=== PATIENT | male | born 1960 ===

== ENCOUNTER 2017-02-28 14:17 | Emergency (ER) | payer OTHER ==
[2017-02-28 14:26] VITALS: BP 134/67; PULSE 74; RESP 20; TEMP 97.6; O2SAT 0
[2017-02-28] MEDS ORDERED: Sodium Chloride 0.9% 1,000 ML IV STA (14:30)
[2017-02-28 15:13] LABS: BASO # 0.1 K/uL (0.0-0.2); BASO % 1.5 % (0.0-2.0); EOS # 0.3 K/uL (0.0-0.7); EOS % 4.3 % (0.0-4.0); HEMATOCRIT 45.2 % (35.0-51.0); LYMPH # 2.2 K/uL (1.0-4.3); LYMPH % 33.9 % (20.0-40.0); MEAN CORPUSCULAR HEMOGLOBIN 30.6 pg (27.0-31.0); MEAN PLATELET VOLUME 8.6 fl (7.2-11.7); MONO # 0.4 K/uL (0.0-0.8); MONO % 6.4 % (0.0-10.0); NEUT # 3.5 K/uL (1.8-7.0); NEUT % 53.9 % (50.0-75.0); RED CELL DISTRIBUTION WIDTH 13.6 % (11.5-14.5); WHITE BLOOD COUNT 6.5 K/uL (4.8-10.8)
[2017-02-28 15:16] LABS: RBC URINE 16 /hpf (0-3); URINE BILIRUBIN NEGATIVE (NEGATIVE); URINE BLOOD MODERATE (NEGATIVE); URINE COLOR STRAW (YELLOW); URINE GLUCOSE (UA) NEG (Normal); URINE KETONE NEGATIVE (NEGATIVE); URINE LEUKOCYTE ESTERASE NEG Leu/uL (Negative); URINE PROTEIN NEGATIVE (NEGATIVE); URINE UROBILINOGEN 0.2-1.0 mg/dL (0.2-1.0); WBC URINE < 1 /hpf (0-5)
[2017-02-28 15:26] LABS: ALB/GLOB RATIO 1.3 (1.0-2.1); ALKALINE PHOSPHATASE 100 U/L (38-126); ALT/SGPT 28 U/L (21-72); AST/SGOT 36 U/L (17-59); BILIRUBIN,TOTAL 0.4 mg/dl (0.2-1.3); BLOOD UREA NITROGEN 12 mg/dl (9-20); CALCIUM 9.6 mg/dL (8.4-10.2); CARBON DIOXIDE 27 mmol/L (22-30); CHLORIDE 104 mmol/L (98-107); GFR AFRICAN-AMERICAN > 60; GLUCOSE,RANDOM 116 mg/dL (75-110); POTASSIUM 4.4 MMOL/L (3.6-5.0); SODIUM 146 mmol/l (132-148)
[2017-02-28 15:56] LABS: PROSTATE SPECIFIC ANTIGEN 1.11 ng/ML (0.00-4.0)
--- NOTE | 2017-02-28 16:27 | ED PDOC ---
HPI: Back Time Seen by Provider: 02/28/17 14:29 Chief Complaint (Nursing): Back Pain Chief Complaint (Provider): Low Back Pain History Per: Patient History/Exam Limitations: no limitations Onset/Duration Of Symptoms: Days (x1 week) Current Symptoms Are (Timing): Still Present Quality Of Discomfort: Other (w/radiation to left leg) Severity: Moderate Associated Symptoms: Other (hematuria (today)) Additional Complaint(s): Jas Wilde is a 56 year old male, with a past medical history of prostate problems, who presents to the ED on 02/28/17 for the evaluation of moderate lower back pain that he has experienced x1 week. Pain, further described as radiating into his left leg, has also been accompanied by some grossly bloody urine (today) though he denies fever, flank pain, scrotal pain or penile pain. Has taken no medications for symptom relief prior to arrival. Of note, patient's most recent followup with his PMD/Urologist was as of 4 months ago, at which time he was told his prostate was OK. PMD: unable to remember name Past Medical History Reviewed: Historical Data, Nursing Documentation, Vital Signs Vital Signs: Last Vital Signs Temp 97.6 F 02/28/17 14:22 Pulse 74 02/28/17 14:22 Resp 20 02/28/17 14:22 BP 134/67 02/28/17 14:22 Pulse Ox 0 L 02/28/17 14:22 - Medical History PMH: Benign Prostatic Hyperplasia ("prostate problems") - Surgical History Surgical History: No Surg Hx - Family History Family History: States: Unknown Family Hx - Home Medications Home Medications: Ambulatory Orders Medication Instructions Recorded Ciprofloxacin HCl [Cipro] 500 mg PO BID #20 tab 02/28/17 - Allergies Allergies/Adverse Reactions: Allergies Allergy/AdvReac Type Severity Reaction Status Date / Time No Known Allergies Allergy Verified 02/28/17 14:22 Review of Systems Constitutional: Negative for: Fever Genitourinary Male: Positive for: Hematuria (gross, today). Negative for: Penile Pain, Other (no scrotal pain) Musculoskeletal: Positive for: Back Pain (low back; no flank pain) Physical Exam - Reviewed Nursing Documentation Reviewed: Yes Vital Signs Reviewed: Yes - Physical Exam Appears: Positive for: Non-toxic, No Acute Distress Head Exam: Positive for: ATRAUMATIC, NORMOCEPHALIC Skin: Positive for: Normal Color, Warm, Dry Eye Exam: Positive for: Normal appearance, PERRL Neck: Positive for: Normal, Painless ROM, Supple Cardiovascular/Chest: Positive for: Regular Rate, Rhythm. Negative for: Murmur Respiratory: Positive for: Normal Breath Sounds. Negative for: Respiratory Distress Gastrointestinal/Abdominal: Positive for: Normal Exam, Soft. Negative for: Tenderness Back: Positive for: Vertebral Tenderness (low back, mostly central/vertebral). Negative for: L CVA Tenderness, R CVA Tenderness Extremity: Positive for: Normal ROM (FROM x4 extremities). Negative for: Deformity Neurologic/Psych: Positive for: Alert, Oriented. Negative for: Motor/Sensory Deficits - Laboratory Results Result Diagrams: 02/28/17 15:00 02/28/17 15:00 - ECG O2 Sat by Pulse Oximetry: 0 - Other Rad XR Lumbar Spine X-Ray: Interpreted by Me, Viewed By Me X-Ray Interpretation: no lytic lesions, maintained lumbar disc space Medical Decision Making Medical Decision Makin:29 Initial Impression: low back pain Initial Plan: * XR Lumbar Spine * Labs * PSA * Udip * Urinalysis * Urine Culture * IV NS 1000ml at 1000mls/hr * Toradol 30mg IV * Reevaluation 16:25 XR L-spine as reviewed by this provider shows no lytic lesions and a maintained lumbar disc space. Labs reviewed, unremarkable save for moderate blood on urinalysis. Patient will likely require urology followup. Upon provider reevaluation patient reports improvement in pain s/p administration of ED analgesics. Scribe Attestation: Documented by Sabrina Mullen, acting as a scribe for Cr Stapleton III, DO. Provider Scribe Attestation: All medical record entries made by the Scribe were at my direction and personally dictated by me. I have reviewed the chart and agree that the record accurately reflects my personal performance of the history, physical exam, medical decision making, and the department course for this patient. I have also personally directed, reviewed, and agree with the discharge instructions and disposition. Disposition - Clinical Impression Clinical Impression: Hematuria - Disposition Referrals: [facility] [Outside] Neil Rangel MD [Staff Provider] - Disposition: Transfer of Care Disposition Time: 19:00 Condition: GOOD Additional Instructions: follow up with urologist as instructed for blood in your urine. return to the ED with any worsening or concerning symptoms. Prescriptions: Ciprofloxacin HCl [Cipro] 500 mg PO BID #20 tab Instructions: Ciprofloxacin (By mouth), Acute Hematuria (ED) Patient Signed Over To: Gianfranco Chavez
--- NOTE | 2017-02-28 19:43 | ED PDOC ---
- Laboratory Results Result Diagrams: 02/28/17 15:00 02/28/17 15:00 - ECG O2 Sat by Pulse Oximetry: 0 - Other Rad XR Lumbar Spine X-Ray: Interpreted by Me, Viewed By Me X-Ray Interpretation: no acute disease Medical Decision Making Medical Decision Makin:00 Patient endorsed over to me by Cr Stapleton III, DO, pending XR, reevaluation and final disposition. 21:32 Urine studies negative. Labs reviewed with no clinically significant abnormalities. XR L-Spine shows no acute disease, as read by this provider. Upon provider reevaluation patient is feeling better, is medically stable, and requires no further treatment in the ED at this time. Patient will be discharged home with Rx for Cipro and instructions to take Tylenol as needed for relief of pain. Counseling was provided and all questions were answered regarding diagnosis and need for follow up with the referred urologist (Dr. Thomas). There is agreement to discharge plan. Return if symptoms persist or worsen. Clinical Impression: hematuria Scribe Attestation: Documented by Sabrina Mullen, acting as a scribe for Gianfranco Chavez MD. Provider Scribe Attestation: All medical record entries made by the Scribe were at my direction and personally dictated by me. I have reviewed the chart and agree that the record accurately reflects my personal performance of the history, physical exam, medical decision making, and the department course for this patient. I have also personally directed, reviewed, and agree with the discharge instructions and disposition. Disposition Counseled Patient/Family Regarding: Studies Performed, Diagnosis, Need For Followup - Clinical Impression Clinical Impression: Hematuria - POA Present On Arrival: None - Disposition Referrals: [facility] [Outside] Neil Rangel MD [Staff Provider] - Disposition: Routine/Home Disposition Time: 21:00 Condition: GOOD Additional Instructions: follow up with urologist as instructed for blood in your urine. return to the ED with any worsening or concerning symptoms. Prescriptions: Ciprofloxacin HCl [Cipro] 500 mg PO BID #20 tab Instructions: Ciprofloxacin (By mouth), Acute Hematuria (ED)
--- NOTE | 2017-03-01 11:58 | RAD ---
PROCEDURE: Radiographs of the Lumbar Spine. HISTORY: Central low back pain COMPARISON: No prior. FINDINGS: BONES: There is normal alignment of the lumbar vertebral bodies. Lumbar lordosis is maintained. Vertebral bodies are normal in height. There is no acute fracture, spondylolysis or spondylolisthesis. DISC SPACES: There is mild degenerative disc disease in the lower lumbar spine with anterior spurring, mild reduced disc heights and multilevel facet arthropathy, worse at L5-S1. There is partial sacralization of L5 on the left and degenerative changes at the lumbosacral articulation. OTHER FINDINGS: None. IMPRESSION: No acute fracture or spondylolysis. Mild multilevel degenerative disc disease in the lower lumbar spine, worse at L5-S1.
== END 2017-02-28 21:52 | disposition home or self-care (01) ==
LOC: H.ER 14:17
DX: R31.9 Hematuria, unspecified (principal)

== ENCOUNTER 2017-03-08 17:48 | Observation (INO) | payer OTHER ==
[2017-03-08 17:58] VITALS: BP 127/67; PULSE 75; RESP 18; TEMP 97.6; O2SAT 100
[2017-03-08] MEDS ORDERED: Iohexol 240 (50 ml) PO ONE (18:16)
[2017-03-08] MEDS ORDERED: Iohexol 240 (50 ml) ONE (18:17)
[2017-03-08] MEDS ORDERED: Sodium Chloride 0.9% 1,000 ML IV STA (18:18)
--- NOTE | 2017-03-08 18:28 | ED PDOC ---
HPI: Abdomen Time Seen by Provider: 03/08/17 17:59 Chief Complaint (Nursing): GI Problem Chief Complaint (Provider): Abdominal Pain History Per: Patient History/Exam Limitations: no limitations Onset/Duration Of Symptoms: Hrs (x3) Outside of [place] travel?: No Current Symptoms Are (Timing): Still Present Severity: Moderate Location Of Pain/Discomfort: RUQ, Epigastric Quality Of Discomfort: "Pain" (feels as if abdomen is "inflamed") Associated Symptoms: Vomiting (x2, non-bilious/non-bloody). denies: Fever, Diarrhea, Constipation Last Bowel Movement: Other (normal but occasionally productive of black stools) Additional Complaint(s): Jas Wilde is a 56 year old male, with a past medical history inclusive of hypercholesterolemia, who presents to the ED on 03/08/17 for the evaluation of moderate epigastric/RUQ abdominal pain that he has experienced x3 hours. Pain, further described as his abdomen being "inflamed", has also been accompanied by 2 episodes of non-bilious/non-bloody vomiting. Recent bowel movements have reportedly been normal, though occasionally productive of black stools. Denies fever. Of note, patient reports having experienced a similar painful episode 1 week ago but that symptoms had spontaneously resolved. He also admits to being a former habitual alcohol abuser but states that he no longer drinks. PMD: Carmela Barber Past Medical History Reviewed: Historical Data, Nursing Documentation, Vital Signs Vital Signs: Last Vital Signs Temp 97.6 F 03/08/17 17:50 Pulse 75 03/08/17 17:50 Resp 18 03/08/17 17:50 BP 127/67 03/08/17 17:50 Pulse Ox 100 03/08/17 22:23 - Medical History PMH: Benign Prostatic Hyperplasia ("prostate problems"), Hypercholesterolemia - Family History Family History: States: Unknown Family Hx - Social History Alcohol: Other (former abuser, no longer drinks) - Home Medications Home Medications: Ambulatory Orders Medication Instructions Recorded Ciprofloxacin HCl [Cipro] 500 mg PO BID #20 tab 02/28/17 Dicyclomine [Dicyclomine HCl] 10 mg PO BID #12 cap 03/08/17 Omeprazole 20 mg PO DAILY #30 capsule. 03/08/17 - Allergies Allergies/Adverse Reactions: Allergies Allergy/AdvReac Type Severity Reaction Status Date / Time No Known Allergies Allergy Verified 02/28/17 14:22 Review of Systems ROS Statement: Except As Marked, All Systems Reviewed And Found Negative Constitutional: Negative for: Fever Gastrointestinal: Positive for: Vomiting (x2, non-bilious/non-bloody), Abdominal Pain (epigastric/RUQ), Melena (occasional) Physical Exam - Reviewed Nursing Documentation Reviewed: Yes Vital Signs Reviewed: Yes - Physical Exam Appears: Positive for: Non-toxic, No Acute Distress Head Exam: Positive for: ATRAUMATIC, NORMOCEPHALIC Skin: Positive for: Normal Color, Warm, Dry Cardiovascular/Chest: Positive for: Regular Rate, Rhythm. Negative for: Murmur Respiratory: Positive for: Normal Breath Sounds. Negative for: Respiratory Distress Gastrointestinal/Abdominal: Positive for: Soft, Tenderness (slight tenderness noted to right-upper epigastrum and right mid-abdomen). Negative for: Mass, Guarding, Rebound Back: Positive for: Normal Inspection Rectal: Positive for: Other (normal yellow/brown stool, no gross blood on examination) Neurologic/Psych: Positive for: Alert, Oriented - Laboratory Results Result Diagrams: 03/08/17 18:30 03/08/17 18:30 - ECG O2 Sat by Pulse Oximetry: 100 (RA) Pulse Ox Interpretation: Normal Medical Decision Making Medical Decision Makin:59 Initial Impression: gastritis vs possible GI bleed vs colelithiasis/ cholecystitis Initial Plan: * US Gallbladder/Pancreas * CT A/P w/PO and IV contrast * Labs * Lipase * Urinalysis * IV NS 1000ml at 1000mls/hr * Protonix 40mg IVP * Zofran 4mg IVP * Reevaluation 18:18 Patient will be placed within ED Observation secondary to time-extensive ED workup. See Obs note for further updates. Scribe Attestation: Documented by Sabrina Mullen, acting as a scribe for Williams Smith MD. Provider Scribe Attestation: All medical record entries made by the Scribe were at my direction and personally dictated by me. I have reviewed the chart and agree that the record accurately reflects my personal performance of the history, physical exam, medical decision making, and the department course for this patient. I have also personally directed, reviewed, and agree with the discharge instructions and disposition. ED OBSERVATION Date of observation admission: 03/08/17 Time of observation admission: 18:18 - Observation admission statement Patient is being placed in observation because:: Secondary to time-extensive ED workup. - Goals of Observation Goals of observation are:: Pending results of workup, reevaluation and final disposition. - Progress Note Progress Note: 03/08/17 20:52 Labs reviewed with no clinically significant abnormalities. US report reviewed: FINDINGS: Gallbladder: Within normal limits in appearance, without evidence of gallstones, significant gallbladder wall thickening, or pericholecystic fluid. Reportedly negative sonographic Hook's sign. Common bile duct: Does not appear abnormally dilated, measuring less than 6 mm in diameter. Liver: Within normal limits in appearance. Measures 14.7 cm in length. Normal flow seen in the main portal vein on color and Doppler imaging. Pancreas: Incompletely seen due to gas. Visualized portions appear grossly normal. Right kidney: Within normal limits in appearance. Measures 11 cm in length. No evidence of hydronephrosis. IMPRESSION: No evidence of gallstones or other significant abnormality. See above for remaining findings. 03/08/17 22:01 CT A/P report reviewed: FINDINGS: LOWER THORAX: No infiltrate seen in the lung bases. ABDOMEN: LIVER: Mild fatty infiltration of the liver. GALLBLADDER AND BILE DUCTS: Suspect tiny stones in the gallbladder neck, not visualized on the recent ultrasound. No CT evidence of acute cholecystitis. No evidence of significant biliary ductal dilatation. PANCREAS: No CT evidence of acute pancreatitis. SPLEEN: No acute abnormality of the spleen identified. ADRENALS: No acute abnormality of the adrenal glands identified. KIDNEYS AND URETERS: No acute abnormality of the kidneys identified. No evidence of significant hydrouereteronephrosis. STOMACH AND BOWEL: Colonic diverticulosis, with no evidence of acute diverticulitis. Otherwise, no significant abnormality of the bowel is identified. No acute abnormality of the stomach or duodenum identified. No evidence of small bowel obstruction. APPENDIX: Appendix is seen, and is within normal limits in appearance. PELVIS: BLADDER: Mild thickening of the bladder wall. REPRODUCTIVE: Prostate gland is markedly enlarged. ABDOMEN and PELVIS: INTRAPERITONEAL SPACE: No evidence of free intraperitoneal air or fluid. BONES/JOINTS: Bony structures appear demineralized. SOFT TISSUES: No acute abnormality of the visualized soft tissues is seen. VASCULATURE: No evidence of abdominal aortic aneurysm. No evidence of periaortic hemorrhage. LYMPH NODES: No evidence of diffuse lymphadenopathy. IMPRESSION: - Mild bladder wall thickening. This is a nonspecific finding, but can be seen with cystitis. Recommend clinical correlation. - Otherwise, no evidence of significant acute process. - Tiny stones in the gallbladder neck, with no CT evidence of cholecystitis. - Colonic diverticulosis. - See above for remaining findings. 03/08/17 22:16 Upon provider reevaluation patient reports feeling much improved. Tolerated PO challenge. Patient is medically stable and requires no further treatment in the ED at this time, will discharge home with Rx for Dicyclomine HCl and Omeprazole. Counseling provided regarding diagnosis, Rx and need for followup with his PMD. There is agreement to discharge plan, return for acute worsening of symptoms. Clinical Impression: Abdominal Pain, Gastritis Disposition - Clinical Impression Clinical Impression: Abdominal pain, Gastritis - Patient ED Disposition Is Patient to be Admitted: No Counseled Patient/Family Regarding: Studies Performed, Diagnosis, Need For Followup, Rx Given - Disposition Disposition: Routine/Home Disposition Time: 22:16 Condition: STABLE
[2017-03-08 19:17] LABS: ALB/GLOB RATIO 1.3 (1.0-2.1); ALKALINE PHOSPHATASE 86 U/L (38-126); ALT/SGPT 41 U/L (21-72); AST/SGOT 35 U/L (17-59); BILIRUBIN,TOTAL 0.5 mg/dl (0.2-1.3); BLOOD UREA NITROGEN 12 mg/dl (9-20); CALCIUM 9.7 mg/dL (8.4-10.2); CARBON DIOXIDE 27 mmol/L (22-30); CHLORIDE 103 mmol/L (98-107); GFR AFRICAN-AMERICAN > 60; GLUCOSE,RANDOM 95 mg/dL (75-110); LIPASE 74 U/L (23-300); SODIUM 145 mmol/l (132-148); TOTAL PROTEIN 7.9 G/DL (6.3-8.2)
[2017-03-08 19:27] LABS: RBC URINE < 1 /hpf (0-3); URINE BILIRUBIN NEGATIVE (NEGATIVE); URINE BLOOD NEGATIVE (NEGATIVE); URINE COLOR STRAW (YELLOW); URINE GLUCOSE (UA) NEG (Normal); URINE KETONE NEGATIVE (NEGATIVE); URINE LEUKOCYTE ESTERASE NEG Leu/uL (Negative); URINE PROTEIN NEGATIVE (NEGATIVE); URINE UROBILINOGEN 0.2-1.0 mg/dL (0.2-1.0); WBC URINE 1 /hpf (0-5)
[2017-03-08 19:30] LABS: BASO # 0.1 K/uL (0.0-0.2); BASO % 0.9 % (0.0-2.0); EOS # 0.3 K/uL (0.0-0.7); EOS % 4.4 % (0.0-4.0); HEMATOCRIT 45.6 % (35.0-51.0); LYMPH % 39.9 % (20.0-40.0); MEAN CELL VOLUME 90.2 fl (80.0-94.0); MEAN CORPUSCULAR HGB CONC 33.3 g/dL (33.0-37.0); MEAN PLATELET VOLUME 8.7 fl (7.2-11.7); MONO # 0.7 K/uL (0.0-0.8); MONO % 8.7 % (0.0-10.0); NEUT # 3.5 K/uL (1.8-7.0); NEUT % 46.1 % (50.0-75.0); NRBC % 0.1 % (0.0-0.0); RED CELL DISTRIBUTION WIDTH 13.4 % (11.5-14.5); WHITE BLOOD COUNT 7.6 K/uL (4.8-10.8)
--- NOTE | 2017-03-08 20:53 | US ---
EXAM: US Abdomen Limited, Right Upper Quadrant CLINICAL HISTORY: 56 years old, male; Pain; Abdominal pain; Epigastric; Additional info: Ruq/epig pain, ex-drinker TECHNIQUE: Real-time ultrasound of the right upper quadrant with image documentation. EXAM DATE/TIME: 03/08/2017 6:18 PM COMPARISON: No relevant prior studies available. FINDINGS: Gallbladder: Within normal limits in appearance, without evidence of gallstones, significant gallbladder wall thickening, or pericholecystic fluid. Reportedly negative sonographic Hook's sign. Common bile duct: Does not appear abnormally dilated, measuring less than 6 mm in diameter. Liver: Within normal limits in appearance. Measures 14.7 cm in length. Normal flow seen in the main portal vein on color and Doppler imaging. Pancreas: Incompletely seen due to gas. Visualized portions appear grossly normal. Right kidney: Within normal limits in appearance. Measures 11 cm in length. No evidence of hydronephrosis. IMPRESSION: No evidence of gallstones or other significant abnormality. See above for remaining findings.
[2017-03-08] MEDS ORDERED: Sodium Chloride 0.9% 50 ML IV ONE (21:15)
[2017-03-08] MEDS ORDERED: Iohexol 300 100 ML IJ ONE (21:15)
--- NOTE | 2017-03-08 22:01 | CT ---
EXAM: CT Abdomen and Pelvis With Intravenous Contrast CLINICAL HISTORY: 56 years old, male; Pain; Abdominal pain; Additional info: Diffuse abd pain, ex-drinker, occasional black sto TECHNIQUE: Axial computed tomography images of the abdomen and pelvis with intravenous contrast. This CT exam was performed using one or more of the following dose reduction techniques: automated exposure control, adjustment of the mA and/or kV according to patient size, and/or use of iterative reconstruction technique. Coronal and sagittal reformatted images were created and reviewed. CONTRAST: 100 mL of [id number] administered intravenously. EXAM DATE/TIME: 03/08/2017 6:16 PM COMPARISON: No relevant prior studies available. FINDINGS: LOWER THORAX: No infiltrate seen in the lung bases. ABDOMEN: LIVER: Mild fatty infiltration of the liver. GALLBLADDER AND BILE DUCTS: Suspect tiny stones in the gallbladder neck, not visualized on the recent ultrasound. No CT evidence of acute cholecystitis. No evidence of significant biliary ductal dilatation. PANCREAS: No CT evidence of acute pancreatitis. SPLEEN: No acute abnormality of the spleen identified. ADRENALS: No acute abnormality of the adrenal glands identified. KIDNEYS AND URETERS: No acute abnormality of the kidneys identified. No evidence of significant hydrouereteronephrosis. STOMACH AND BOWEL: Colonic diverticulosis, with no evidence of acute diverticulitis. Otherwise, no significant abnormality of the bowel is identified. No acute abnormality of the stomach or duodenum identified. No evidence of small bowel obstruction. APPENDIX: Appendix is seen, and is within normal limits in appearance. PELVIS: BLADDER: Mild thickening of the bladder wall. REPRODUCTIVE: Prostate gland is markedly enlarged. ABDOMEN and PELVIS: INTRAPERITONEAL SPACE: No evidence of free intraperitoneal air or fluid. BONES/JOINTS: Bony structures appear demineralized. SOFT TISSUES: No acute abnormality of the visualized soft tissues is seen. VASCULATURE: No evidence of abdominal aortic aneurysm. No evidence of periaortic hemorrhage. LYMPH NODES: No evidence of diffuse lymphadenopathy. IMPRESSION: - Mild bladder wall thickening. This is a nonspecific finding, but can be seen with cystitis. Recommend clinical correlation. - Otherwise, no evidence of significant acute process. - Tiny stones in the gallbladder neck, with no CT evidence of cholecystitis. - Colonic diverticulosis. - See above for remaining findings.
--- NOTE | 2017-03-09 19:20 | CARD ---
APPROVED REPORT EKG Measurement Heart [id number] <Conclusion> Normal sinus rhythm Normal ECG
== END 2017-03-08 22:29 | disposition home or self-care (01) ==
LOC: H.ER 17:48 → H.EROBSV 18:18
PROVIDERS: ADMIT Emergency Medicine; ATTEND Emergency Medicine
DX: K29.70 Gastritis, unspecified, without bleeding (principal); K57.30 Diverticulosis of large intestine without perforation or abscess without bleeding; R10.11 Right upper quadrant pain; N40.0 Benign prostatic hyperplasia without lower urinary tract symptoms; E78.00 Pure hypercholesterolemia, unspecified